=== PATIENT | female | born 1935 | race Caucasian/White ===

== ENCOUNTER 2016-10-11 05:31 | Inpatient (IN) | payer OTHER ==
[2016-09-18 11:51] VITALS: BMI 33.0
--- NOTE | 2016-09-18 12:48 | PAT Medication Instructions ---
Service Date Sep 18, 2016. Current Home Medication List Apixaban (Eliquis), 5 MG PO BID Atorvastatin (Lipitor), 20 MG PO HS Calcium Carbonate-Cholecalcife (Oyster Shell Calcium + D), 1 TAB PO QAM Cholecalciferol (Vitamin D3 Ultra Strength), 1 TAB PO HS Cranberry (Vaccinium Macrocarp (Cranberry), 1 TAB PO QAM Flecainide (Tambocor), 2 TAB PO BID Glipizide (Glipizide Er), 1 TAB PO QAM Metoprolol Succ (Toprol Xl) (Toprol-Xl), 25 MG PO HS Omeprazole (Prilosec), 20 MG PO QAM Sertraline (Zoloft), 25 MG PO QAM Tolterodine Tartrate (Detrol LA), 1 CAP PO BID [Areds(For Vision)], Unknown Dose PO BID Medication Instructions For Your Scheduled Surgery - Hold the following medications 2 weeks prior to surgery: Cranberry (Vaccinium Macrocarp (Cranberry), 1 TAB PO QAM - Hold the following medications 48 hours prior to surgery per surgeon's instructions: Apixaban (Eliquis), 5 MG PO BID - Hold the following medications the morning of surgery: Glipizide (Glipizide Er), 1 TAB PO QAM Calcium Carbonate-Cholecalcife (Oyster Shell Calcium + D), 1 TAB PO QAM [Areds(For Vision)], Unknown Dose PO BID - Take the following medications the morning of surgery with a sip of water: Flecainide (Tambocor), 2 TAB PO BID Omeprazole (Prilosec), 20 MG PO QAM Sertraline (Zoloft), 25 MG PO QAM Tolterodine Tartrate (Detrol LA), 1 CAP PO BID - Take the following medications as scheduled the night before surgery: Cholecalciferol (Vitamin D3 Ultra Strength), 1 TAB PO HS Atorvastatin (Lipitor), 20 MG PO HS Metoprolol Succ (Toprol Xl) (Toprol-Xl), 25 MG PO HS Flecainide (Tambocor), 2 TAB PO BID Tolterodine Tartrate (Detrol LA), 1 CAP PO BID If you have any questions please call us at [phone] or [phone] or [phone]
[2016-09-18 13:27] LABS: BASO % 1.1 %; BASO ABS # 0.06 K/uL (0-0.2); COMPLETE YES; EOS % 1.7 %; HEMATOCRIT 40.1 % (37-47); LYMPH % 35.3 %; LYMPH ABS # 1.87 K/uL (1.2-3.4); MEAN CELL VOLUME 88.9 fL (80-100); MEAN CORPUSCULAR HEMOGLOBIN 29.7 pg (25-34); MEAN CORPUSCULAR HGB CONC 33.4 g/dl (32-36); MEAN PLATELET VOLUME 12.1 fL (7.4-10.4); MONO % 8.9 %; PLATELET COUNT 146 K/uL (130-400); RED BLOOD COUNT 4.51 M/uL (4.2-5.4); WHITE BLOOD COUNT 5.29 K/uL (4.8-10.8)
[2016-09-18 13:33] LABS: URINE APPEARANCE CLEAR (CLEAR); URINE BILIRUBIN NEG (NEG); URINE COLOR YELLOW; URINE EPITHELIAL CELL AUTO 20-30 /lpf (0-5); URINE NITRITE NEG (NEG); URINE SPECIFIC GRAVITY 1.014 (1.000-1.030); UROBILINOGEN NEG (NEG)
[2016-09-18 13:36] LABS: MANUAL MICROSCOPIC REQUIRED? NO; REVIEW REQ? NO
[2016-09-18 13:39] LABS: INR 1.1 (0.9-1.1); PARTIAL THROMBOPLASTIN RATIO 1.1; PROTHROMBIN TIME (PATIENT) 11.5 SECONDS (9.0-12.0)
[2016-09-18 14:07] LABS: BUN/CREATININE RATIO 19.6 (10-20); CALCIUM 9.4 mg/dl (8.5-10.1); CREATININE 0.97 mg/dl (0.60-1.20); POTASSIUM 4.4 mmol/L (3.5-5.1)
--- NOTE | 2016-10-10 21:41 | HISTORY & PHYSICAL EXAMINATION ---
DATE OF ADMISSION: 10/11/2016 SUBJECTIVE AND CHIEF COMPLAINT: Left ankle pain. HISTORY OF PRESENT ILLNESS: This is a patient who has undergone a left ankle fusion by Dr. Nelson; however, throughout the postoperative period the fusion has become a nonunion. She had persistent pain within the ankle and deformity as well as inability to ambulate. She is now being set up for revision of the ankle fusion. PAST MEDICAL HISTORY: Atrial fibrillation, hypertension, hypercholesterolemia, diabetes, acid reflux. SOCIAL HISTORY: The patient denies alcohol use. The patient is a smoker. PAST SURGICAL HISTORY: Left ankle surgery, hysterectomy, cystoscopy and a bladder suspension. FAMILY HISTORY: Noncontributory. CURRENT MEDICATIONS: Eliquis, atorvastatin, glipizide, omeprazole, metoprolol, Os-Marco, vitamin D3 supplement, PreserVision, cranberry supplement, sertraline, Tolterodine. ALLERGIES: METFORMIN AND PRINIVIL. PHYSICAL EXAMINATION: GENERAL: The patient is alert and oriented x3. She is in no acute distress. She is a well-dressed, well-nourished 80-year-old female. Her affect is appropriate. CARDIOVASCULAR: Heart has a regular rhythm and rate without murmurs. LUNGS: Clear to auscultation bilaterally. Dorsalis pedis, posterior tib pulse +1/4. Capillary refill is less than 2 seconds. LYMPHATICS: No evidence of any swollen lymph nodes. MUSCULOSKELETAL: The patient has an antalgic gait favoring the left lower extremity. Upon inspection of the left lower extremity, she has swelling noted of the left ankle. There is a well-healed surgical incision the lateral aspect of the ankle. There is limited range of motion of the left ankle secondary to attempted fusion. There is limited strength left lower extremity. NEUROLOGIC: Sensation normal and intact distally left lower extremity. X-RAY EXAM: Multiple views of the left ankle demonstrate screws crossing the tibiotalar joint with persistent lucency within the tibiotalar attempted fusion. ASSESSMENT AND DIAGNOSIS: Nonunion attempted fusion, left ankle. PLAN: Above assessment was discussed with the patient. At this time it was recommended the patient undergo a left ankle revision fusion of nonunion with autograft and removal of hardware from the left ankle x2 screws, left iliac crest autograft harvest, application of platelet rich plasma and possible use of Augment bone substitute. All potential risks, benefits, complications, alternatives and rehab have been discussed with the patient. At this time, the patient wishes to proceed with the surgery as indicated and she will be scheduled for the surgery on 10/11/2016. KEENAN
[~2016-10-11] VITALS: Ht 154.9 cm; Wt 78.3 kg
[2016-10-11] VITALS (7 sets, daily range): BP systolic 95–194; BP diastolic 57–88; PULSE 60–72; TEMP 36.6–36.8; O2SAT 90–97; Ht 154.9 cm; Wt 78.3 kg
[~2016-10-11 05:31] MED LIST: AREDS PO; ATOR-22 PO; CALC-211 PO; CHOL500015 PO; CRAN1TAB3 PO; DTRSR/2 PO; ELQ25 PO; FLEC50TA20 PO; GLIP2.5T11 PO; METO50TA7 PO; PRLSR20 PO; SERT25TA PO
[2016-10-11] MEDS ORDERED: CEFAZOLIN 1000MG/55 ML D5W IV SCH (06:00)
[2016-10-11] MEDS ORDERED: LACTATED RINGER'S 1000ML 1,000 ML IV SCH (06:00)
[2016-10-11] MEDS ORDERED: BUPIVACAINE 0.25% 30 ML VIAL ONE (06:28)
[2016-10-11] MEDS ORDERED: ROCURONIUM BROMIDE 10 MG/ML 5 ML VIAL ONE (06:31)
[2016-10-11] MEDS ORDERED: PROPOFOL IV EMULSION 10 MG/ML 20 ML VIAL IV ONE (06:31)
[2016-10-11] MEDS ORDERED: MIDAZOLAM HCL 1 MG/ML 2ML VIAL ONE (06:31)
[2016-10-11] MEDS ORDERED: LIDOCAINE HCL 2% 2 ML VIAL (20MG/ML) ONE (06:31)
[2016-10-11] MEDS ORDERED: GLYCOPYRROLATE INJ 0.2 MG/ML VIAL ONE (06:31)
[2016-10-11] MEDS ORDERED: ONDANSETRON INJ 2 MG/ML 2 ML VIAL ONE (06:31)
[2016-10-11] MEDS ORDERED: NEOSTIGMINE METHYLSULFATE 5 MG/5 ML SYR ONE (06:31)
[2016-10-11] MEDS ORDERED: FENTANYL CITRATE INJ 50 MCG/1 ML 2 ML VIAL ONE (06:31)
[2016-10-11] MEDS ORDERED: BUPIVACAINE 0.5 % 5 MG/1 ML MPF 30ML VIAL ONE (06:52)
[2016-10-11] MEDS ORDERED: BACITRACIN 50000 UNIT VIAL ONE (06:53)
[2016-10-11] MEDS ORDERED: THROMBIN FOR SOLN 20000 UNIT KIT ONE (07:17)
[2016-10-11] MEDS ORDERED: GELATIN SPONGE SZ 100 ONE (07:18)
--- NOTE | 2016-10-11 07:31 | History & Physical Bridge Note ---
H&P Re-Evaluation Bridge Note: I have examined the patient, reviewed the History & Physical and in the interval since the performance of the History & Physical I have noted the following changes of clinical significance: No changes noted
[2016-10-11] MEDS ORDERED: BUPIVACAINE/EPINEPHRINE 0.5% MPF 1:200,000 30 ML VIAL ONE (08:15)
[2016-10-11] MEDS ORDERED: EpHEDrine SULFATE INJ 50 MG/ML AMP IV PRN (08:45)
[2016-10-11] MEDS ORDERED: ONDANSETRON INJ 2 MG/ML 2 ML VIAL IV PRN ×2 (08:45→11:15)
[2016-10-11] MEDS ORDERED: PHENYLEPHRINE 100MCG/ML 5ML SYR IV PRN (08:45)
[2016-10-11] MEDS ORDERED: ATROPINE SULFATE 0.1 MG/ML 5ML SYR IV PRN (08:45)
[2016-10-11] MEDS ORDERED: HYDROmorphone INJ 2 MG/ML SYR/VIAL IV PRN (08:45)
[2016-10-11] MEDS ORDERED: MoRPHine SULFATE PF 1 MG/ML 10 ML AMP/VIAL ONE (08:51)
[2016-10-11] MEDS ORDERED: WATER, STERILE FOR INJ 10 ML VIAL ONE (08:52)
[2016-10-11] MEDS ORDERED: EpHEDrine SULFATE INJ 50 MG/ML AMP ONE (08:52)
[2016-10-11] MEDS ORDERED: HydrALAZINE HCL 20 MG/ML VIAL ONE (08:58)
[2016-10-11] MEDS ORDERED: THROMBIN 5000 UNITS KIT ONE (09:22)
[2016-10-11] MEDS ORDERED: CALCIUM CHLORIDE 10% 10 ML SYR ONE (09:22)
[2016-10-11] MEDS ORDERED: DURAMORPH 10 MG/10 ML INJ ONE (09:43)
--- NOTE | 2016-10-11 10:49 | [facility] Post Operative Brief Note ---
Immediate Operative Summary Operative Date Oct 11, 2016. Pre-Operative Diagnosis Left non-union of ankle fusion; Painful retained hardware Post-Operative Diagnosis Same as preoperative diagnosis Procedure(s) Performed Left Ankle Revision Fusion of Nonunion with Autograft; Removal Hardware; Left Iliac Crest Autograft [place]; Application of PRP, Application Augment bone graft substitute Surgeon Dr Nelson Consumer Attorney Surgeon(s) Gerson Ortega PA-C Estimated Blood Loss 75ML Findings See Dict Specimens A:Explant screws x2 and 1 washer Drains HV x 1 Anesthesia GLMA w/ popliteal block Complication(s) None Disposition Recovery Room / PACU
--- NOTE | 2016-10-11 11:07 | DIAGNOSTIC IMAGING REPORT ---
LEFT ANKLE 2 VIEWS CLINICAL HISTORY: LT NON UNION/REVISION/REMOVE HARDWARE COMPARISON STUDY: None. FINDINGS: Total fluoroscopy time was 52 seconds. 2 fluoroscopic spot images. There is been distal resection of the left fibula. There is a lateral cortical plate transfixed with screws through the distal fibula, tibia, and talus. The hardware appears intact. IMPRESSION: Fluoroscopy provided for hardware revision within the left ankle. Electronically signed by: Kamran Powell M.D. 10/11/2016 11:06 AM Dictated Date/Time: 10/11/2016 11:05 AM
[2016-10-11] MEDS ORDERED: MAGNESIUM HYDROXIDE SUSP 30 ML UDC PO PRN (11:15)
[2016-10-11] MEDS ORDERED: BISACODYL 10 MG SUPP PR PRN (11:15)
[2016-10-11] MEDS ORDERED: SOD PHOSPHATE/SOD BIPHOSPHATE ENEMA 132 ML BTL PR PRN (11:15)
[2016-10-11] MEDS ORDERED: OXYCODONE HCL IR 5 MG TAB (IMMEDIATE RELEASE) PO PRN (11:15)
[2016-10-11] MEDS ORDERED: ALUMINUM/MAGNESIUM/SIMETH (MAALOX MAX) 30 ML UDC PO PRN (11:15)
[2016-10-11] MEDS ORDERED: ZOLPIDEM TARTRATE 5 MG TAB PO PRN (11:15)
[2016-10-11] MEDS ORDERED: MoRPHine SULFATE 2 MG/ML CARP IV PRN (11:15)
[2016-10-11] MEDS ORDERED: NO NSAIDS SCH (11:15)
--- NOTE | 2016-10-11 11:28 | Discharge Instructions ---
Discharge Instructions Admission Reason for Admission: Left Ankle Non-Union Fracture Discharge Discharge Diagnosis / Problem: left ankle nonunion fusion Discharge Goals Goal(s): Decrease discomfort Activity Recommendations Activity Limitations: as noted below Lifting Limitations: until after follow-up appointment Exercise/Sports Limitations: until after follow-up appointment May Resume Sexual Activity: when tolerated Shower/Bathe: keep incision dry (Keep splint in place until follow up.) Driving or Machine Use: No driving until cleared by Dr. Plummer's clinic. Weightbearing Status: Left non-weightbearing . Instructions / Follow-Up Instructions / Follow-Up ACTIVITY RECOMMENDATIONS: Limitations: No weight bearing to affected limb at all times. SPECIAL CARE INSTRUCTIONS: * Some drainage onto the dressing is normal and is no cause for alarm. * Some swelling is natural especially after walking. * When resting, keep your foot elevated above the level of your heart. * Call [facility] if you notice: -Increased drainage -Fever over 101 degrees F -Severe constant pain BANDAGE: * Leave bandage/cast in place unless otherwise directed. * Keep bandage/cast dry at all times. FOLLOW UP VISIT WITH DR. PLUMMER If appointment is not already scheduled: Please call [facility] after you get home today to schedule a follow-up appointment for [address] Plummer at . Current Hospital Diet Patient's current hospital diet: Diabetes Type 2 Diet Discharge Diet Recommended Diet: Diabetes Type 2 Diet Procedures Procedures Performed: Left Ankle Revision Fusion of Nonunion with Autograft; Removal Hardware; Left Iliac Crest Autograft [place]; Application of PRP, Application Augment bone graft substitute Pending Studies Studies pending at discharge: no Medical Emergencies . Who to Call and When: Medical Emergencies: If at any time you feel your situation is an emergency, please call 911 immediately. . Non-Emergent Contact Non-Emergency issues call your: Surgeon Call Non-Emergent contact if: temperature is above 101, your pain is not controlled, your pain is worsening, wound has increased pain . "Provider Documentation" section prepared by Gerson Ortega. VTE Core Measure Inpt VTE Proph given/why not?: Other Anticoagulation (Eliquis and Aspirin), T.E.D. Stockings
--- NOTE | 2016-10-11 11:33 | Anesthesiology Progress Note ---
Anesthesia Post Op Note Date & Time Oct 11, 2016 at 11:33 Vital Signs Pain Intensity: 0 Vital Signs Past 12 Hours Date Time Temp Pulse Resp B/P Pulse Ox O2 Delivery O2 Flow Rate FiO2 10/11/16 11:30 62 13 134/65 97 Nasal Cannula 2 10/11/16 11:20 61 14 138/63 97 Mask 10 10/11/16 11:10 63 13 135/61 97 Mask 10 10/11/16 11:02 36.3 67 16 137/65 98 Mask 10 10/11/16 06:16 36.8 68 18 194/88 97 Room Air Notes Mental Status: alert / awake / arousable, participated in evaluation Pt Amnestic to Procedure: Yes Nausea / Vomiting: adequately controlled Pain: adequately controlled Airway Patency, RR, SpO2: stable & adequate BP & HR: stable & adequate Hydration State: stable & adequate Anesthetic Complications: no major complications apparent
--- NOTE | 2016-10-11 12:12 | DIAGNOSTIC IMAGING REPORT ---
LEFT ANKLE MIN 3 VIEWS ROUTINE CLINICAL HISTORY: Postoperative evaluation. Internal fixation. COMPARISON: Intraoperative fluoroscopic images from earlier today. FINDINGS: Fine detail is diminished due to overlying cast. Distal fibular resection is noted. There is a distal fibular reconstruction plate with screws through the syndesmosis, tibia and talus. Hardware is intact. This drains are in place. There are no unexpected radiopaque foreign bodies. Osteophytosis is noted. IMPRESSION: Postsurgical findings consistent with revision left ankle internal fixation, as described above. Electronically signed by: Dung Wang M.D. 10/11/2016 12:11 PM Dictated Date/Time: 10/11/2016 12:09 PM
--- NOTE | 2016-10-11 12:13 | OPERATIVE REPORT ---
DATE OF OPERATION: 10/11/2016 PREOPERATIVE DIAGNOSES: 1. Left nonunion ankle fusion. 2. Painful retained hardware of the ankle. POSTOPERATIVE DIAGNOSES: Same. PROCEDURES: 1. Left revision ankle fusion with implantation autograft and Synthes locking plate. 2. Left iliac crest bone graft harvest. 3. Removal of painful hardware, left ankle. 4. Application platelet rich plasma concentrate. 5. Application Augment bone graft substitute. SURGEON: Dr. Nelson. MANAGER HEAVY DUTY: Gerson Ortega PA-C who was present for patient positioning, sterile prep and drape, management of retractors and instruments. He was present through the critical portions of the case including wound closure, application of sterile dressing and transport of the patient to recovery. ANESTHESIA: General LMA with popliteal block. SPECIMENS: Explanted hardware from left ankle. DRAINS: Hemovac x1. COMPLICATIONS: None. BLOOD LOSS: 75 mL. PERTINENT HISTORY: This is a 80-year-old female who had previous attempted left ankle fusion. The patient developed a nonunion of the left ankle fusion after prolonged weightbearing on the lower extremity. The patient then attempted conservative management; however, had a CT scan which demonstrated clear evidence of nonunion with loosening of the hardware. The patient was then scheduled for revision surgery as indicated. All potential risks, benefits, complications, alternatives, rehab, potential for incomplete relief of symptoms, need for further surgery, DVT, PE, , persistent pain, swelling, scarring, weakness, neurovascular injury, wound complications, hardware failure, nonunion, malunion were all discussed with the patient and her family and patient decided to proceed with the procedure as indicated. PROCEDURE IN DETAIL: The patient was administered a popliteal block in the preop holding area. She was taken to the operative suite, placed supine on the operating table. After reviewing the consent and identification of proper operative site, patient was anesthetized, LMA was placed. Tourniquet was placed high on the left thigh over cast padding. The left iliac crest and the left lower extremity was then sterilely prepped and draped in usual fashion. Left lower extremity was then elevated and exsanguinated with Esmarch bandage and tourniquet inflated to 350 mmHg. Next, a 15 blade scalpel was used to make a curvilinear incision at the distal lateral aspect of the left lower extremity at the site of previous incision. The incision was extended proximally slightly and the skin and scar were then carefully dissected with a 15 blade scalpel down the level of the subcutaneous tissue. This was then carefully elevated and dissected with the Metzenbaum scissors. The sural nerve was identified, freed, retracted, and protected. The peroneal tendon sheath was encased in some degree of scarring, peroneal tendons were then retracted and protected. Next, the peroneal tendons were left within their tendon sheath and retracted posteriorly. Next, scar tissue and fibrous debris was then dissected from the attempted tibiotalar fusion and then the screw heads were visualized laterally, noted to be loosened. The two 7.3 mm screws then removed as well as the washer present adjacent to the subtalar joint. Subtalar joint was noted to be mobile as well as the tibiotalar joint. Next, a Laura elevator was used to elevate the soft tissue anterior and posterior to the tibiotalar joint fusion and then using a rongeur and curette, the fibrous debris at the nonunion site was then resected from the tibiotalar joint and then the screw holes were then carefully curetted with a small curette and irrigated with sterile normal saline with bacitracin. Once down to bleeding bone of the tibia and the talus, there was noted to be some bone loss. At this time, decided to harvest a tricortical bone graft from the left iliac crest as well as cancellous bone. Also, a small wafer of bone was then resected from the distal aspect of the fibula using a sagittal saw and also used as a bone graft, particularly in the anterior aspect of the ankle joint fusion. Next, the joint was then opened with a lamina electric powerline examiner under live fluoroscopic assistance, determining correct sizing for the tricortical iliac crest graft and then at this point it was pinned in place with two 2.25 mm threaded guide pins to stabilize the alignment both in AP and lateral projections. Next, a 2 mm drill bit was used to make multiple small holes in the tibia and the talus, followed by fish scaling of the joint surfaces with an osteotome and mallet. After this joint was fully prepared, it was irrigated once again with sterile normal saline with bacitracin and then packed with a moist gauze. Next, the left iliac crest was then injected with 0.5% Marcaine with epinephrine and then 10 blade scalpel was used to make an incision just proximal and lateral to the ASIS along the iliac crest. This incision was then approximately 3-4 cm in length and the incision was deepened through subcutaneous tissue. Meticulous hemostasis was achieved with electrocautery. Full thickness skin flaps were developed. After dissecting through subcutaneous adipose tissue, the fascia was encountered. The fascia was then incised over the iliac crest and then using careful electrocautery, elevated a flap of periosteum from the iliac crest. Next, a 1 cm trapezoidal tricortical graft was then fashioned, marked and then cut with a sagittal saw after placement of Hohmann retractors. Next, the tricortical graft was then resected, placed on the back table. Next, a cancellous graft was then harvested from the iliac crest and then placed in a Amari cup. Next, the left iliac crest was then irrigated with sterile normal saline with bacitracin, suctioned dry and then Gelfoam with thrombin was then placed in the defect made in the left iliac crest. The remainder of the left iliac crest incision was then injected with thrombin and the fascia was then closed using #1 Vicryl. The dermis was closed using buried interrupted 2-0 Vicryl and then the incision was injected deep to the fascia with 1 mL of Duramorph and then followed by injection into the subcutaneous tissue with 0.5% Marcaine with epinephrine. Next, the skin was closed using skin kt. A sterile compressive dressing was applied over and sealed with an OpSite. Next, the tricortical bone graft obtained from the left iliac crest was then placed into the ankle joint, the tibiotalar joint. This was then followed by placement of cancellous graft medially and centrally using Romanian forceps. Next, the Synthes locking humeral plate was then placed in the lateral aspect of the ankle. At this time, venous blood was harvested from the patient and then centrifuged down to extract the platelet rich plasma. This was then placed on the back table for later use. Next, the humeral locking plate was then provisionally pinned in place under live fluoroscopic assistance and then holding the ankle under slight compression in neutral alignment, the humeral locking plate was then locked in place first in the talus and then into the tibia and fibula. Stable construct was achieved with multiple locking screws, confirmed no penetration of the subtalar joint both with live fluoroscopy as well as with palpation with a [place] elevator. Next, the remainder of the cancellous graft was then packed in the anterior and posterior aspects of the ankle joint fusion, followed by placement of Augment bone graft substitute anterior and posterior, and followed by placement of platelet rich plasma concentrate at the fusion site as well as in the subcutaneous tissue. Next, a 10-Faroese single lumen Hemovac drain was placed, exiting anterolaterally, followed by closure of the deep soft tissue using 2-0 Vicryl and the dermis was closed using buried interrupted 3-0 Vicryl, skin was closed using 4-0 nylon. Platelet poor plasma was injected around the incision site and then a sterile compressive dressing and bulky Kevin Snowden plaster splint was applied in neutral dorsiflexion and overwrapped with an Joel wrap. The tourniquet was released. The patient was awakened and taken to recovery in stable condition. I attest to the content of the Intraoperative Record and any orders documented therein. Any exceptions are noted below. FAYD
[2016-10-11] MEDS ORDERED: CEFEPIME IV 2,000 MG in DEXTROSE 5% 100ML 100 ML IV ONE (14:30)
[2016-10-11] MEDS: ACETAMINOPHEN 500 MG TAB PO SCH ×2 (15:12→21:22)
[2016-10-11] MEDS ORDERED: GLUCAGON FOR INJ 1 MG VIAL SQ PRN (15:15)
[2016-10-11] MEDS: POTASSIUM CHLORIDE INJ 10 MEQ in SODIUM CHLORIDE 0.9% 1000ML 1,000 ML IV SCH ×2 (15:15→23:50)
[2016-10-11] MEDS ORDERED: GLUCOSE 40% GEL 15 GM TUBE PO PRN (15:15)
[2016-10-11] MEDS ORDERED: DEXTROSE 50% 50 ML SYR IV PRN (15:15)
[2016-10-11] MEDS ORDERED: GLUCOSE 10 TABS/TUBE PO PRN (15:15)
[2016-10-11] MEDS ORDERED: CEFAZOLIN IV 2,000 MG in DEXTROSE 5% 50ML 50 ML IV SCH (16:00)
[2016-10-11 16:35] LABS: URINE APPEARANCE CLOUDY (CLEAR); URINE BILIRUBIN NEG (NEG); URINE COLOR YELLOW; URINE EPITHELIAL CELL AUTO >30 /lpf (0-5); URINE NITRITE POS (NEG); URINE PH 5.5 (4.5-7.5); URINE SPECIFIC GRAVITY 1.018 (1.000-1.030); UROBILINOGEN NEG (NEG)
[2016-10-11 16:38] LABS: MANUAL MICROSCOPIC REQUIRED? NO; REVIEW REQ? YES
[2016-10-11 17:02] LABS: URINE PATH CASTS 0-3 GRANULAR CASTS /lpf (0)
[2016-10-11] MEDS: INSULIN ASPART 100 UNITS/ML 3 ML PEN SC SCH ×2 (17:15→21:00)
--- NOTE | 2016-10-11 19:50 | Medical Consult ---
Consultation Date of Consultation: Oct 11, 2016. Attending Physician: Obi Nelson D.O. Reason for Consultation: Postoperative medical management Social History Smoking Status: Never Smoker Smokeless Tobacco Use: No Alcohol Use: none Drug Use: none Occupation Status: retired Allergies Coded Allergies: Lisinopril (Verified Adverse Reaction, Unknown, GI UPSET, 09/18/16) Metformin (Verified Adverse Reaction, Unknown, DIARRHEA, 09/18/16) Current Inpatient Medications Current Inpatient Medications Medications (Trade) Dose Ordered Sig/Luis F Route Start Time Stop Time Status Last Admin Dose Admin Lactated Ringer's (Lr 1000ml) 1,000 ml @ 15 mls/hr Q24H IV 10/11/16 06:00 10/12/16 05:59 10/11/16 06:29 15 MLS/HR Apixaban (Eliquis Tab) 5 mg BID PO 10/11/16 21:00 11/10/16 20:59 Atorvastatin Calcium (Lipitor Tab) 20 mg HS PO 10/11/16 21:00 11/10/16 20:59 Flecainide Acetate (Tambocor Tab) 100 mg BID PO 10/11/16 21:00 11/10/16 20:59 Glipizide (GlipiZIDE EXTENDED REL TAB) 2.5 mg QAM PO 10/12/16 09:00 11/11/16 08:59 Metoprolol Succinate (Toprol Xl Tab) 25 mg HS PO 10/11/16 21:00 11/10/16 20:59 Sertraline HCl (Zoloft Tab) 25 mg QAM PO 10/12/16 09:00 11/11/16 08:59 Tolterodine Tartrate (Detrol LA Cap) 2 mg BID PO 10/11/16 21:00 11/10/16 20:59 Calcium/Vitamin D (Caltrate Plus Tab) 1 tab QAM PO 10/12/16 09:00 11/11/16 08:59 Cholecalciferol 1000 inter.unit 1,000 inter.unit HS PO 10/11/16 21:00 11/10/16 20:59 Potassium Chloride/Sodium Chloride (KCl Inj/Nss 1000ml) 1,005 ml @ 100 mls/hr Q10H3M IV 10/11/16 13:30 11/10/16 13:29 10/11/16 15:15 100 MLS/HR Miscellaneous Medication (No Nsaids) 1 ea UD N/A 10/11/16 11:15 11/10/16 11:14 Oxycodone HCl (Roxicodone Immediate Rel Tab) 1-2 TABS FOR PAIN 1 TABLET ... Q4H PRN PO 10/11/16 11:15 10/25/16 11:14 Morphine Sulfate (MoRPHine SULFATE INJ) 1 mg Q1HWA PRN IV 10/11/16 11:15 10/25/16 11:14 Acetaminophen (Tylenol Tab) 1,000 mg Q8H PO 10/11/16 14:00 11/10/16 13:59 10/11/16 15:12 1,000 MG Magnesium Hydroxide (Milk Of Magnesia Susp) 30 ml Q6H PRN PO 10/11/16 11:15 11/10/16 11:14 Bisacodyl (Dulcolax Supp) 10 mg DAILY PRN NV 10/11/16 11:15 11/10/16 11:14 Sodium Biphosphate/ Sodium Phosphate (Fleet Enema) 132 ml DAILY PRN NV 10/11/16 11:15 11/10/16 11:14 Senna (Senokot Tab) 17.2 mg HS PO 10/11/16 21:00 11/10/16 20:59 Docusate Sodium (coLACE CAP) 100 mg BID PO 10/11/16 21:00 11/10/16 20:59 Diphenhydramine HCl (Benadryl Cap) 25 mg Q8H PRN PO 10/11/16 11:15 11/10/16 11:14 Al Hydrox/Mg Hydrox/Simethicone (Maalox Max Susp) 15 ml Q4H PRN PO 10/11/16 11:15 11/10/16 11:14 Zolpidem Tartrate (Ambien Tab) 5 mg HSZ PRN PO 10/11/16 11:15 11/10/16 11:14 Multivitamins (Multivitamin Tab) 1 tab QAM PO 10/12/16 09:00 11/11/16 08:59 Ondansetron HCl (Zofran Inj) 4 mg Q6H PRN IV 10/11/16 11:15 11/10/16 11:14 Pantoprazole Sodium (Protonix Tab) 40 mg QAM PO 10/12/16 09:00 11/11/16 08:59 Aspirin 81 mg 81 mg QAM PO 10/12/16 09:00 11/11/16 08:59 Cefepime HCl/ Dextrose (Maxipime IV/D5 100ml) 112.5 ml @ 200 mls/hr Q24H IV 10/12/16 16:00 10/21/16 15:59 Insulin Aspart (novoLOG ASPART) SLIDING SCALE If C... ACHS SC 10/11/16 17:15 11/10/16 17:14 Glucose (Glucose 40% Gel) UD PRN PO 10/11/16 15:15 11/10/16 15:14 Glucose (Glucose Chew Tab) 1 tabs UD PRN PO 10/11/16 15:15 11/10/16 15:14 Dextrose (Dextrose 50% 50ML Syringe) 50 ml UD PRN IV 10/11/16 15:15 11/10/16 15:14 Glucagon (Glucagon Inj) 1 mg UD PRN SQ 10/11/16 15:15 11/10/16 15:14 Review of Systems The patient denies chest pain, palpitations, shortness of breath, cough, lower extremity swelling, vision change, hearing change, sore throat, fevers, chills, sweats, weight change, fatigue, nausea, vomiting, abdominal pain, pelvic pain, blood in urine or stool, dysuria, urinary frequency or urgency, lightheadedness , dizziness, headache, memory loss, rash, abnormal bruising or bleeding, generalized weakness, arthralgias or myalgias, back or neck pain, night sweats, or allergy symptoms. The review of systems is otherwise negative other than for that already noted above, and at least 10 systems have been reviewed. Physical Exam Date Time Temp Pulse Resp B/P Pulse Ox O2 Delivery O2 Flow Rate FiO2 10/11/16 16:00 96 Nasal Cannula 2.0 10/11/16 14:29 36.6 67 16 143/75 96 3.0 10/11/16 13:25 61 16 130/71 97 3.0 10/11/16 12:59 60 16 129/70 96 3.0 10/11/16 12:25 96 Nasal Cannula 2.0 10/11/16 12:25 96 Nasal Cannula 2.0 10/11/16 12:15 62 18 117/78 96 Nasal Cannula 2 10/11/16 12:00 61 14 121/54 97 Nasal Cannula 2 10/11/16 11:50 59 15 122/57 97 Nasal Cannula 2 10/11/16 11:40 36.7 61 15 134/62 97 Nasal Cannula 2 10/11/16 11:30 62 13 134/65 97 Nasal Cannula 2 10/11/16 11:20 61 14 138/63 97 Mask 10 10/11/16 11:10 63 13 135/61 97 Mask 10 10/11/16 11:02 36.3 67 16 137/65 98 Mask 10 10/11/16 06:16 36.8 68 18 194/88 97 Room Air The patient is awake, well-developed and adequately nourished, alert and oriented 3, normocephalic and atraumatic, lying in bed and in no acute distress. HEENT--PERRL, EOMI, mucous membranes and oropharynx normal. Neck--supple, no JVD or bruits, thyroid normal, trachea midline, no adenopathy. Heart--normal S1 and S2, no extra beats, no murmurs, rubs or gallops. Lungs--clear bilaterally with good air movement, no respiratory distress, no accessory muscle use. Abdomen--normal bowel sounds and soft, nontender and nondistended, no hernias or masses, no organomegaly. Extremities--no cyanosis, clubbing or edema. There are good distal pulses b/l. Dermatologic--normal skin turgor, normal color, warm and dry, no abnormal lymph nodes, no rash. Neurologic--cranial nerves II through XII grossly intact. Rheumatologic--deferred. Psychiatric--normal affect. Laboratory Results Last 24 Hours Test 10/11/16 00:00 10/11/16 05:59 10/11/16 11:03 10/11/16 16:45 Urine Color YELLOW Urine Appearance CLOUDY Urine pH 5.5 Urine Specific [place] 1.018 Urine Protein NEG Urine Glucose (UA) NEG Urine Ketones NEG Urine Occult Blood NEG Urine Nitrite POS Urine Bilirubin NEG Urine Urobilinogen NEG Urine Leukocyte Esterase MODERATE Urine WBC (Auto) >30 /hpf Urine RBC (Auto) 0-4 /hpf Urine Hyaline Casts (Auto) 5-10 /lpf Urine Epithelial Cells (Auto) >30 /lpf Urine Bacteria (Auto) NEG Urine Pathogenic Casts 0-3 GRANULAR CASTS /lpf Bedside Glucose 110 mg/dl 142 mg/dl 146 mg/dl Assessment & Plan Status post left ankle revision and fusion by Dr. Neslon--seen postoperatively, is medically stable with no complaints. UTI / Kluyvera Ascorbata --patient reports that she was not treated for this infection from her preop workup. We'll change Ancef to cefepime 2 g IV daily. Atrial fibrillation/hypertension--continue metoprolol succinate 25 mg by mouth at bedtime, flecainide 100 mg by mouth twice a day and will resume Eliquis 5 mg by mouth twice a day at orthopedic discretion. Hypercholesterolemia--continue atorvastatin 20 mg by mouth at bedtime. Diabetes Mellitus --hold glipizide ER 2.5 mg by mouth every morning, and place on Accu-Cheks before meals and at bedtime with NovoLog coverage. GERD--change omeprazole 20 mg every morning to pantoprazole 40 mg by mouth every morning. Depression--continue sertraline 25 mg by mouth every morning. Chronic bladder dysfunction--continue Detrol LA 2 mg by mouth twice a day.
[2016-10-11] MEDS: DOCUSATE SODIUM 100 MG CAP PO SCH (21:20)
[2016-10-11] MEDS: ATORVASTATIN 20 MG TAB PO SCH (21:20)
[2016-10-11] MEDS: FLECAINIDE ACETATE 100 MG TAB PO SCH (21:20)
[2016-10-11] MEDS: CHOLECALCIFEROL 1000 INTER.UNIT TAB PO SCH (21:43)
[2016-10-11] MEDS: SENNA 8.6 MG TAB PO SCH (21:43)
[2016-10-11] MEDS: METOPROLOL SUCC 25MG EXT REL TAB PO SCH (21:44)
[2016-10-11] MEDS: APIXABAN 2.5 MG TAB PO SCH (21:45)
[2016-10-11] MEDS: TOLTERODINE TARTRATE LA 2 MG CAPCR PO SCH (22:09)
[2016-10-12] VITALS (7 sets, daily range): BP systolic 92–125; BP diastolic 55–67; PULSE 64–80; TEMP 36.6–36.9; O2SAT 87–97
[2016-10-12] MEDS: ACETAMINOPHEN 500 MG TAB PO SCH ×3 (06:09→21:20)
[2016-10-12 07:56] LABS: BUN/CREATININE RATIO 15.1 (10-20); CALCIUM 8.6 mg/dl (8.5-10.1); CREATININE 1.1 mg/dl (0.60-1.20)
[2016-10-12 08:06] LABS: HEMATOCRIT 30.3 % (37-47); MEAN CELL VOLUME 91.8 fL (80-100); MEAN CORPUSCULAR HGB CONC 32.7 g/dl (32-36); MEAN PLATELET VOLUME 12.3 fL (7.4-10.4); PLATELET COUNT 120 K/uL (130-400); PLT ESTIMATE NORMAL; WHITE BLOOD COUNT 6.05 K/uL (4.8-10.8)
[2016-10-12] MEDS: INSULIN ASPART 100 UNITS/ML 3 ML PEN SC SCH ×4 (08:28→21:00)
--- NOTE | 2016-10-12 08:57 | Orthopedic Progress Note ---
Orthopedic Progress Note Date of Service Oct 12, 2016. Subjective Post OP Day: 1 Reports: pain controlled w PO medications, Denies: SOB, calf pain, chest pain, complaints, light headedness Objective splint C/D/I, capillary refill less than 2 sec., toes mobile Date Time Temp Pulse Resp B/P Pulse Ox O2 Delivery O2 Flow Rate FiO2 10/12/16 07:35 Room Air 10/12/16 07:00 36.6 64 16 92/55 97 Nasal Cannula 2.0 10/12/16 04:21 97 Nasal Cannula 2.0 10/12/16 03:55 36.7 71 18 95/57 87 Room Air 10/11/16 23:27 36.7 72 16 95/57 90 Room Air 10/11/16 21:15 Room Air 10/11/16 16:00 96 Nasal Cannula 2.0 10/11/16 14:29 36.6 67 16 143/75 96 3.0 10/11/16 13:25 61 16 130/71 97 3.0 10/11/16 12:59 60 16 129/70 96 3.0 10/11/16 12:25 96 Nasal Cannula 2.0 10/11/16 12:25 96 Nasal Cannula 2.0 10/11/16 12:15 62 18 117/78 96 Nasal Cannula 2 10/11/16 12:00 61 14 121/54 97 Nasal Cannula 2 10/11/16 11:50 59 15 122/57 97 Nasal Cannula 2 10/11/16 11:40 36.7 61 15 134/62 97 Nasal Cannula 2 10/11/16 11:30 62 13 134/65 97 Nasal Cannula 2 10/11/16 11:20 61 14 138/63 97 Mask 10 10/11/16 11:10 63 13 135/61 97 Mask 10 10/11/16 11:02 36.3 67 16 137/65 98 Mask 10 Laboratory Results 24 Hours: Test 10/12/16 06:10 Hematocrit 30.3 % Hemoglobin 9.9 g/dL Assessment & Plan Assessment: POD 1 REVISION ANKLE FUSION AFIB HTN Plan: DRESSING CHANGE TODAY WILL DISCUSS DISPOSITION TOMORROW Inhouse Planning DVT Prophylaxis: other (ELIQUIS )
[2016-10-12] MEDS ORDERED: NON-FORMULARY MEDICATION (Omeprazole (Prilosec) 20 MG) PO SCH (09:00)
[2016-10-12] MEDS ORDERED: NON-FORMULARY MEDICATION (Cranberry (Vaccinium Macrocarp (Cranberry) 1 TAB) PO SCH (09:00)
[2016-10-12] MEDS: ASPIRIN 81 MG ECTAB PO SCH (09:36)
[2016-10-12] MEDS: DOCUSATE SODIUM 100 MG CAP PO SCH ×2 (09:36→21:19)
[2016-10-12] MEDS: MULTIVITAMIN TAB PO SCH (09:36)
[2016-10-12] MEDS: SERTRALINE HCL 50 MG TAB PO SCH (09:36)
[2016-10-12] MEDS: APIXABAN 2.5 MG TAB PO SCH ×2 (09:37→21:20)
[2016-10-12] MEDS: TOLTERODINE TARTRATE LA 2 MG CAPCR PO SCH ×2 (09:38→21:20)
[2016-10-12] MEDS: FLECAINIDE ACETATE 100 MG TAB PO SCH ×2 (09:39→21:19)
[2016-10-12] MEDS: CALCIUM 600MG + VIT D 400 IU TAB PO SCH (09:39)
[2016-10-12] MEDS: PANTOprazole SOD 40 MG TAB PO SCH (09:41)
--- NOTE | 2016-10-12 09:54 | Orthopedic Progress Note ---
Orthopedic Progress Note Date of Service Oct 12, 2016. Subjective Post OP Day: 1 Reports: feeling well, pain controlled w PO medications, Denies: complaints Objective capillary refill less than 2 sec., toes mobile Splint removed due to a fair amount of drainage noted on the dressing through the night. Had to be reinforced once. Current dressing/splint with moderate bloody drainage over the heel and med/lat aspects. Current splint removed. Drain pulled without difficulty. Minimal drainage from the drain site. Wound appears benign. Acticoat dressing left on. New dressing placed with new posterior splint. Pt tolerated well. Date Time Temp Pulse Resp B/P Pulse Ox O2 Delivery O2 Flow Rate FiO2 10/12/16 07:35 Room Air 10/12/16 07:00 36.6 64 16 92/55 97 Nasal Cannula 2.0 10/12/16 04:21 97 Nasal Cannula 2.0 10/12/16 03:55 36.7 71 18 95/57 87 Room Air 10/11/16 23:27 36.7 72 16 95/57 90 Room Air 10/11/16 21:15 Room Air 10/11/16 16:00 96 Nasal Cannula 2.0 10/11/16 14:29 36.6 67 16 143/75 96 3.0 10/11/16 13:25 61 16 130/71 97 3.0 10/11/16 12:59 60 16 129/70 96 3.0 10/11/16 12:25 96 Nasal Cannula 2.0 10/11/16 12:25 96 Nasal Cannula 2.0 10/11/16 12:15 62 18 117/78 96 Nasal Cannula 2 10/11/16 12:00 61 14 121/54 97 Nasal Cannula 2 10/11/16 11:50 59 15 122/57 97 Nasal Cannula 2 10/11/16 11:40 36.7 61 15 134/62 97 Nasal Cannula 2 10/11/16 11:30 62 13 134/65 97 Nasal Cannula 2 10/11/16 11:20 61 14 138/63 97 Mask 10 10/11/16 11:10 63 13 135/61 97 Mask 10 10/11/16 11:02 36.3 67 16 137/65 98 Mask 10 Laboratory Results 24 Hours: Test 10/12/16 06:10 Hematocrit 30.3 % Hemoglobin 9.9 g/dL Assessment & Plan Assessment: POD 1 REVISION ANKLE FUSION AFIB HTN Acute Blood Loss Anemia Plan: PT/OT today Plan for dc Friday / Friday Follow H/H Inhouse Planning Pain Management: Morphine, PO Tylenol, Oxy IR DVT Prophylaxis: ASA, other (ELIQUIS ) Discharge Planning Discharge Planning: home DVT Prophylaxis: other (Eliquis/ASA)
[2016-10-12] MEDS: POTASSIUM CHLORIDE INJ 10 MEQ in SODIUM CHLORIDE 0.9% 1000ML 1,000 ML IV SCH ×2 (10:36→19:36)
[2016-10-12] MEDS: LEVOFLOXACIN 750 MG TAB PO SCH (11:23)
--- NOTE | 2016-10-12 15:26 | Progress Note ---
Subjective Date of Service: Oct 12, 2016. Subjective Pt evaluation today including: conversation w/ patient, conversation w/ family Pt is doing well post-op. Denies pain related to OR. Pt denies fever, SOB, chest pain, abd pain, n/v/c/d, LE pain or swelling. Eating well. ROS as noted above, otherwise neg. Objective Vital Signs Date Time Temp Pulse Resp B/P Pulse Ox O2 Delivery O2 Flow Rate FiO2 10/12/16 15:05 36.7 73 16 125/60 93 Room Air 10/12/16 09:45 94 Room Air 10/12/16 07:35 Room Air 10/12/16 07:00 36.6 64 16 92/55 97 Nasal Cannula 2.0 10/12/16 04:21 97 Nasal Cannula 2.0 10/12/16 03:55 36.7 71 18 95/57 87 Room Air 10/11/16 23:27 36.7 72 16 95/57 90 Room Air 10/11/16 21:15 Room Air 10/11/16 16:00 96 Nasal Cannula 2.0 Physical Exam General Appearance: WD/WN, no apparent distress Respiratory/Chest: normal breath sounds, no respiratory distress Cardiovascular: regular rate, rhythm, no edema Abdomen: non tender, soft Extremities: non-tender, no pedal edema Neurologic/Psychiatric: alert, normal mood/affect Skin: normal color, warm/dry Laboratory Results Last 24 Hours Test 10/11/16 16:45 10/11/16 20:37 10/12/16 06:10 10/12/16 08:08 Bedside Glucose 146 mg/dl 120 mg/dl 108 mg/dl White Blood Count 6.05 K/uL Red Blood Count 3.30 M/uL Hemoglobin 9.9 g/dL Hematocrit 30.3 % Mean Corpuscular Volume 91.8 fL Mean Corpuscular Hemoglobin 30.0 pg Mean Corpuscular Hemoglobin Concent 32.7 g/dl RDW Standard Deviation 45.7 fL RDW Coefficient of Variation 13.6 % Platelet Count 120 K/uL Mean Platelet Volume 12.3 fL Platelet Estimate NORMAL Sodium Level 143 mmol/L Potassium Level 4.0 mmol/L Chloride Level 107 mmol/L Carbon Dioxide Level 27 mmol/L Anion Gap 9.0 mmol/L Blood Urea Nitrogen 17 mg/dl Creatinine 1.10 mg/dl Est Creatinine Clear Calc Drug Dose 39.9 ml/min Estimated GFR () 55.7 Estimated GFR (Non- 48.1 BUN/Creatinine Ratio 15.1 Random Glucose 114 mg/dl Calcium Level 8.6 mg/dl Test 10/12/16 12:01 Bedside Glucose 115 mg/dl Assessment and Plan Status post left ankle revision and fusion by Dr. eNlson--seen postoperatively, is medically stable with no complaints. UTI / Kluyvera Ascorbata --patient reports that she was not treated for this infection from her preop workup. Reviewed C&S done pre-op and reveals resistance to multiple cephalosporins, which will make home medication choice less reliable Will start levaquin today Repeat cx pending with UA from ED + for leuk est and nitrites Atrial fibrillation/hypertension--continue metoprolol succinate 25 mg by mouth at bedtime, flecainide 100 mg by mouth twice a day and will resume Eliquis 5 mg by mouth twice a day at orthopedic discretion. Hypercholesterolemia--continue atorvastatin 20 mg by mouth at bedtime. Diabetes Mellitus --hold glipizide ER 2.5 mg by mouth every morning, and place on Accu-Cheks before meals and at bedtime with NovoLog coverage. Pt has been refusing SSI as she does not take insulin at home GERD--change omeprazole 20 mg every morning to pantoprazole 40 mg by mouth every morning. Depression--continue sertraline 25 mg by mouth every morning. Chronic bladder dysfunction--continue Detrol LA 2 mg by mouth twice a day.
[2016-10-12] MEDS ORDERED: CEFEPIME IV 2,000 MG in DEXTROSE 5% 100ML 100 ML IV SCH (16:00)
[2016-10-12] MEDS: ATORVASTATIN 20 MG TAB PO SCH (21:19)
[2016-10-12] MEDS: SENNA 8.6 MG TAB PO SCH (21:19)
[2016-10-12] MEDS: METOPROLOL SUCC 25MG EXT REL TAB PO SCH (21:19)
[2016-10-12] MEDS: CHOLECALCIFEROL 1000 INTER.UNIT TAB PO SCH (21:20)
[2016-10-13] MEDS: POTASSIUM CHLORIDE INJ 10 MEQ in SODIUM CHLORIDE 0.9% 1000ML 1,000 ML IV SCH (05:40)
[2016-10-13] MEDS: ACETAMINOPHEN 500 MG TAB PO SCH (05:41)
[2016-10-13 07:17] LABS: BUN/CREATININE RATIO 15.1 (10-20); CALCIUM 8.6 mg/dl (8.5-10.1); CREATININE 0.97 mg/dl (0.60-1.20); HEMATOCRIT 27.4 % (37-47); MEAN CELL VOLUME 90.4 fL (80-100); MEAN CORPUSCULAR HGB CONC 33.2 g/dl (32-36); MEAN PLATELET VOLUME 12.3 fL (7.4-10.4); PLATELET COUNT 99 K/uL (130-400); PLT ESTIMATE DECREASED; POTASSIUM 4.1 mmol/L (3.5-5.1); RED BLOOD COUNT 3.03 M/uL (4.2-5.4); WHITE BLOOD COUNT 6.63 K/uL (4.8-10.8)
[2016-10-13 07:32] VITALS: BP 145/73; PULSE 78; TEMP 36.8; O2SAT 93
--- NOTE | 2016-10-13 08:25 | Orthopedic Progress Note ---
Orthopedic Progress Note Date of Service Oct 13, 2016. Subjective Post OP Day: 2 Reports: feeling well, pain controlled w PO medications, Denies: SOB, chest pain , complaints, light headedness Objective calves soft nontender, N/V intact, dressing C/D/I, A&O x3, toes mobile Date Time Temp Pulse Resp B/P Pulse Ox O2 Delivery O2 Flow Rate FiO2 10/13/16 07:32 36.8 78 16 145/73 93 Room Air 10/13/16 07:20 Room Air 10/12/16 23:40 Room Air 10/12/16 23:03 36.9 80 16 113/65 91 Room Air 10/12/16 21:16 78 120/67 10/12/16 15:50 Room Air 10/12/16 15:05 36.7 73 16 125/60 93 Room Air 10/12/16 09:45 94 Room Air Laboratory Results 24 Hours: Test 10/13/16 05:50 Hematocrit 27.4 % Hemoglobin 9.1 g/dL Assessment & Plan Assessment: POD 2 REVISION ANKLE FUSION AFIB HTN Acute Blood Loss Anemia Plan: PT/OT today Plan for dc TODAY Follow H/H Inhouse Planning Pain Management: Morphine, PO Tylenol, Oxy IR DVT Prophylaxis: ASA, other (ELIQUIS ) Discharge Planning Discharge Planning: home DVT Prophylaxis: other (Eliquis/ASA)
[2016-10-13] MEDS ORDERED: OXYC-57 PO (08:41)
[2016-10-13] MEDS ORDERED: PROM25TA9 PO (08:41)
[2016-10-13] MEDS: ASPIRIN 81 MG ECTAB PO SCH (09:00)
[2016-10-13] MEDS: APIXABAN 2.5 MG TAB PO SCH (09:25)
[2016-10-13] MEDS: TOLTERODINE TARTRATE LA 2 MG CAPCR PO SCH (09:25)
[2016-10-13] MEDS: CALCIUM 600MG + VIT D 400 IU TAB PO SCH (09:25)
[2016-10-13] MEDS: DOCUSATE SODIUM 100 MG CAP PO SCH (09:25)
[2016-10-13] MEDS: MULTIVITAMIN TAB PO SCH (09:26)
[2016-10-13] MEDS: PANTOprazole SOD 40 MG TAB PO SCH (09:26)
[2016-10-13] MEDS: FLECAINIDE ACETATE 100 MG TAB PO SCH (09:26)
[2016-10-13] MEDS: SERTRALINE HCL 50 MG TAB PO SCH (09:27)
[2016-10-13] MEDS: INSULIN ASPART 100 UNITS/ML 3 ML PEN SC SCH (09:28)
[2016-10-13] MEDS ORDERED: LVQ750 PO (10:01)
[2016-10-13 10:47] VITALS: BP 145/73; PULSE 78; TEMP 36.8; O2SAT 93
--- NOTE | 2016-10-13 10:49 | Progress Note ---
Subjective Date of Service: Oct 13, 2016. Subjective Pt evaluation today including: conversation w/ patient, conversation w/ family Pt feels she is doing well today. Ate well. Pt denies fever, SOB, chest pain, abd pain, n/v/c/d, LE pain or swelling. ROS as noted above, otherwise neg. Objective Vital Signs Date Time Temp Pulse Resp B/P Pulse Ox O2 Delivery O2 Flow Rate FiO2 10/13/16 07:32 36.8 78 16 145/73 93 Room Air 10/13/16 07:20 Room Air 10/12/16 23:40 Room Air 10/12/16 23:03 36.9 80 16 113/65 91 Room Air 10/12/16 21:16 78 120/67 10/12/16 15:50 Room Air 10/12/16 15:05 36.7 73 16 125/60 93 Room Air Physical Exam Comments: General Appearance: WD/WN, no apparent distress Respiratory/Chest: normal breath sounds, no respiratory distress Cardiovascular: regular rate, rhythm, no edema Abdomen: non tender, soft Extremities: non-tender, no pedal edema Neurologic/Psychiatric: alert, normal mood/affect Skin: normal color, warm/dry Laboratory Results Last 24 Hours Test 10/12/16 12:01 10/12/16 17:14 10/12/16 20:54 10/13/16 05:50 Bedside Glucose 115 mg/dl 106 mg/dl 149 mg/dl White Blood Count 6.63 K/uL Red Blood Count 3.03 M/uL Hemoglobin 9.1 g/dL Hematocrit 27.4 % Mean Corpuscular Volume 90.4 fL Mean Corpuscular Hemoglobin 30.0 pg Mean Corpuscular Hemoglobin Concent 33.2 g/dl RDW Standard Deviation 44.2 fL RDW Coefficient of Variation 13.5 % Platelet Count 99 K/uL Mean Platelet Volume 12.3 fL Platelet Estimate DECREASED Sodium Level 144 mmol/L Potassium Level 4.1 mmol/L Chloride Level 111 mmol/L Carbon Dioxide Level 26 mmol/L Anion Gap 7.0 mmol/L Blood Urea Nitrogen 15 mg/dl Creatinine 0.97 mg/dl Est Creatinine Clear Calc Drug Dose 45.3 ml/min Estimated GFR () 64.8 Estimated GFR (Non- 55.9 BUN/Creatinine Ratio 15.1 Random Glucose 103 mg/dl Calcium Level 8.6 mg/dl Test 10/13/16 07:55 Bedside Glucose 112 mg/dl Assessment and Plan Status post left ankle revision and fusion by Dr. Nelson--seen postoperatively, is medically stable with no complaints. UTI / Kluyvera Ascorbata --patient reports that she was not treated for this infection from her preop workup. Reviewed C&S done pre-op and reveals resistance to multiple cephalosporins, which will make home medication choice less reliable Will start levaquin today Repeat cx with e coli with UA from ED + for leuk est and nitrites Atrial fibrillation/hypertension--continue metoprolol succinate 25 mg by mouth at bedtime, flecainide 100 mg by mouth twice a day and will resume Eliquis 5 mg by mouth twice a day at orthopedic discretion. Hypercholesterolemia--continue atorvastatin 20 mg by mouth at bedtime. Diabetes Mellitus --hold glipizide ER 2.5 mg by mouth every morning, and place on Accu-Cheks before meals and at bedtime with NovoLog coverage. Pt has been refusing SSI as she does not take insulin at home GERD--change omeprazole 20 mg every morning to pantoprazole 40 mg by mouth every morning. Depression--continue sertraline 25 mg by mouth every morning. Chronic bladder dysfunction--continue Detrol LA 2 mg by mouth twice a day.
[2016-10-13] MEDS: LEVOFLOXACIN 750 MG TAB PO SCH (10:59)
--- NOTE | 2016-10-20 16:50 | Discharge Summary ---
Orthopedic Discharge Summary Admission Date/Reason Oct 11, 2016 at 11:23 Left Ankle Non-Union Fracture. Discharge Date/Disposition Oct 13, 2016 Home with services Diagnosis Principal Diagnosis: left ankle nonunion fusion Procedure(s) Performed 1. Left revision ankle fusion with implantation autograft and Synthes locking plate. 2. Left iliac crest bone graft harvest. 3. Removal of painful hardware, left ankle. 4. Application platelet rich plasma concentrate. 5. Application Augment bone graft substitute Consultations Medicine Medication Reconciliation New Medications: Oxycodone/Acetaminophen 5MG/325MG (Percocet 5MG/325MG) Tab 1-2 TABLETS PO q4-6h PRN for Pain, #60 TAB Promethazine Hcl (Phenergan) 25 Mg Tab 25 MG PO Q6H PRN for Nausea, #30 TAB Levofloxacin (Levofloxacin) 750 Mg Tab 750 MG PO DAILY@11 for 10 Days, #10 TAB Continued Medications: Apixaban (Eliquis) 2.5 Mg Tab 5 MG PO BID Atorvastatin (Lipitor) 20 Mg Tab 20 MG PO HS, TAB Calcium Carbonate-Cholecalcife (Oyster Shell Calcium + D) 1 Tab Tab 1 TAB PO QAM DOSE PER PHARMACY IS 500/200 Cholecalciferol (Vitamin D3 Ultra Strength) 5,000 Unit Cap 1 TAB PO HS Cranberry (Vaccinium Macrocarp (Cranberry) 450 Mg Tab 1 TAB PO QAM Flecainide (Tambocor) 50 Mg Tab 2 TAB PO BID, TAB Glipizide (Glipizide Er) 2.5 Mg Tab 1 TAB PO QAM, TAB PHARMACY REPORTS GLIPIZIDE XL Metoprolol Succ (Toprol Xl) (Toprol-Xl) 50 Mg Tabcr 25 MG PO HS, TAB Omeprazole (Prilosec) 20 Mg Capcr 20 MG PO QAM, CAP Sertraline (Zoloft) 25 Mg Tab 25 MG PO QAM, TAB Tolterodine Tartrate (Detrol LA) 2 Mg Capcr 1 CAP PO BID, CAP PHARMACY REPORT THIS IS NOT AN XL - IT IS A "REGULAR ONE" [Areds(For Vision)] () Unknown Strength Unknown Dose PO BID Admission Physical Exam As per Admitting History & Physical. Hospital Course The patient was admitted and had the revision of left ankle fusion that day. On POD #1, the main goals were to keep the patient NWB on the LLE and pain control. Medicine had also started treating the patient for a UTI. On POD #2, her pain was controlled and she was maintaining NWB status on the LLE. She was d /c'd home with home nursing that day. Discharge Instructions Please refer to the electronic Patient Visit Report (Discharge Instructions) for additional information. ACTIVITY RECOMMENDATIONS: Limitations: No weight bearing to affected limb at all times. SPECIAL CARE INSTRUCTIONS: * Some drainage onto the dressing is normal and is no cause for alarm. * Some swelling is natural especially after walking. * When resting, keep your foot elevated above the level of your heart. * Call [facility] if you notice: -Increased drainage -Fever over 101 degrees F -Severe constant pain BANDAGE: * Leave bandage/cast in place unless otherwise directed. * Keep bandage/cast dry at all times. FOLLOW UP VISIT WITH DR. PLUMMER If appointment is not already scheduled: Please call [facility] after you get home today to schedule a follow-up appointment for [address] Plummer at .
== END 2016-10-13 12:13 | disposition home health service (06) | DRG 493 ==
LOC: ENRESERVDT → ENRESERV → ENRESERVTM → C.ACU 05:31 → C.MSN 11:23
PROVIDERS: ADMIT Orthopaedic Surgery Sports Medicine; ATTEND Orthopaedic Surgery Sports Medicine
PROC: 0SPG04Z Removal of Internal Fixation Device from Left Ankle Joint, Open Approach (ICD-10-PCS; principal; 2016-10-11 07:30)
PROC: 0SGG07Z Fusion of Left Ankle Joint with Autologous Tissue Substitute, Open Approach (ICD-10-PCS; principal; 2016-10-11 07:30)
PROC: 0QB30ZZ Excision of Left Pelvic Bone, Open Approach (ICD-10-PCS; principal; 2016-10-11 07:30)
DX: M96.0 Pseudarthrosis after fusion or arthrodesis (principal); N39.0 Urinary tract infection, site not specified; B96.20 Unspecified Escherichia coli [E. coli] as the cause of diseases classified elsewhere; Z16.19 Resistance to other specified beta lactam antibiotics; I48.91 Unspecified atrial fibrillation; I10 Essential (primary) hypertension; E11.9 Type 2 diabetes mellitus without complications; E78.00 Pure hypercholesterolemia, unspecified; K21.9 Gastro-esophageal reflux disease without esophagitis; F32.9 Major depressive disorder, single episode, unspecified; N31.9 Neuromuscular dysfunction of bladder, unspecified; F17.200 Nicotine dependence, unspecified, uncomplicated; Z79.01 Long term (current) use of anticoagulants; Z79.84 Long term (current) use of oral hypoglycemic drugs; Z88.8 Allergy status to other drugs, medicaments and biological substances